=== PATIENT | female | born 1990 | race Caucasian/White ===

== ENCOUNTER 2017-03-02 17:42 | Emergency (ER) | payer BC, MEDICAID, OTHER ==
[~2017-03-02] VITALS: Ht 154.9 cm; Wt 88.6 kg
[2017-03-02] MEDS ORDERED: ONDANSETRON HCL 4 MG TABLET PO ONE (18:30)
[2017-03-02] MEDS ORDERED: ACETAMINOPHEN 325 MG TABLET PO ONE (18:30)
[2017-03-02 19:42] VITALS: BP 131/78
== END 2017-03-02 19:42 | disposition home or self-care (01) ==
LOC: EMS 17:44
DX: R51 Headache (principal); R42 Dizziness and giddiness; R11.2 Nausea with vomiting, unspecified; V49.9XXA Car occupant (driver) (passenger) injured in unspecified traffic accident, initial encounter; Y93.9 Activity, unspecified; Y92.89 Other specified places as the place of occurrence of the external cause; Y99.8 Other external cause status
CPT/HCPCS: 99283; Q0162